=== PATIENT | female | born 1990 | race Caucasian/White ===

== ENCOUNTER 2018-03-25 01:03 | Inpatient (IN) ==
[2018-03-25 01:16] VITALS: BMI 31.9
[2018-03-25 01:36] LABS: AMNISURE ROM TEST THERE IS A RUPTURE (NO RUPTURE)
[2018-03-25 02:00] LABS: BASOPHILS # (AUTO) 0.1 X10^3/uL (0.0-0.1); BASOPHILS % (AUTO) 0.6 % (0.2-1.0); EOSINOPHILS % (AUTO) 0.4 % (0.9-2.9); HEMATOCRIT 35.3 % (36.0-47.0); HEMOGLOBIN 11.7 g/dL (12.0-16.0); LYMPHOCYTES # (AUTO) 1.9 X10^3/uL (1.3-2.9); LYMPHOCYTES % (AUTO) 19.4 % (21.0-51.0); MEAN CORPUSCULAR VOLUME 78.6 fL (80.0-100.0); MEAN PLATELET VOLUME 7.7 fL (7.4-11.0); MONOCYTES # (AUTO) 0.9 x10^3/uL (0.3-0.8); MONOCYTES % (AUTO) 9.6 % (0.0-13.0); NEUTROPHILS # (AUTO) 6.7 x10^3/uL (2.2-4.8); PLATELET COUNT 163 X10^3/uL (150.0-450.0); RED BLOOD COUNT 4.49 X10^6/uL (3.5-5.4); RED CELL DISTRIBUTION WIDTH 14.4 % (11.6-16.5); WHITE BLOOD COUNT 9.5 X10^3/uL (3.6-10.0)
[2018-03-25 02:08] LABS: BILIRUBIN,URINE NEGATIVE (NEGATIVE); BLOOD/HEMOGLOBIN,URINE 2+ (NEGATIVE); GLUCOSE, URINE 1+ (NEGATIVE); KETONES,URINE NEGATIVE (NEGATIVE); LEUKOCYTE ESTERASE ,URINE 3+ (NEGATIVE); NITRITES,URINE NEGATIVE (NEGATIVE); PROTEIN,URINE 2+ (NEGATIVE); UROBILINOGEN,URINE 1+ (NORMAL)
[2018-03-25] MEDS ORDERED: D5LR 1L W PITOCIN 10 UNITS/L 10 UNITS/1,000 ML BAG IV PRN (02:15)
[2018-03-25] MEDS ORDERED: D5 1/2 NS 1000 ML 1,000 ML IV SCH (02:15)
[2018-03-25] MEDS ORDERED: PITOCIN ONE (02:32)
[2018-03-25] MEDS ORDERED: D5LR 1L W PITOCIN 10 UNITS/L 10 UNITS/1,000 ML BAG IV ONE (02:32)
[2018-03-25] MEDS ORDERED: D5 1/2 NS 1000 ML 1,000 ML IV ONE ×2 (02:33→15:00)
[2018-03-25] MEDS ORDERED: D5 1/2 NS 1L W PITOCIN 20 UNITS/L 20 UNITS/1,000 ML BAG IV ONE (02:33)
[2018-03-25 02:45] LABS: APPEARANCE,URINE TURBID (CLEAR); COLOR,URINE YELLOW (YELLOW)
[2018-03-25 02:46] LABS: BACTERIA,URINE TRACE /HPF (NEGATIVE); MUCUS,URINE MODERATE /HPF (NEGATIVE); SQUAMOUS EPITHELIAL CELL,UR MANY /HPF (NEGATIVE)
[2018-03-25] MEDS ORDERED: DILAUDID INJ IVP PRN ×2 (02:55→11:43)
[2018-03-25] MEDS ORDERED: NUBAIN INJ 200 MG VIAL MULTIDOSE IVP PRN (02:55)
[2018-03-25] MEDS ORDERED: REGLAN INJ 10 MG VIAL IVP PRN ×2 (02:55→11:43)
[2018-03-25] MEDS ORDERED: PITOCIN IVP ONE (02:55)
[2018-03-25] MEDS ORDERED: NUBAIN INJ 10 ONE (05:36)
--- NOTE | 2018-03-25 06:40 | DR.OB ---
OB Quick Note - Assessment/Plan Assessment/Plan: L&D 03/25/18 at 6:30am Pitocin=20mu/min. S-No complaint. O-Afebrile,VSS FHJ=937 with good LTV, +accel, no decel. CTX=q 1 1/2 to 2 min., about 45-55mmHg CVX=6cm/75%/-1/VTX A-IUP 38 4/7 weeks in labor with SROM GERD P-Cont. pitocin induction Anticipate F/U labs
[2018-03-25] MEDS ORDERED: PHENERGAN INJ 25 MG IV PRN (07:12)
[2018-03-25] MEDS: D5 1/2 NS 1000 ML 1,000 ML with PITOCIN 20 UNITS IV SCH ×4 (08:22→15:17)
--- NOTE | 2018-03-25 08:56 | DR.OB ---
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 Head delivered over intact perineum. No nuchal cord. Nose and mouth bulb suctioned. Body delivered over intact perineum. Cord clamped x 2 and cut. handed to attendant. Cord sent for gases. Placenta delivered spontaneously / intact / 3 vessel cord. No CVX / vaginal / perineal tears. Viable female infant, VTX/OA, wt=7'10" and 9/9, stable to NBN. Mother stable to RR. GNH=[id number].
[2018-03-25] MEDS ORDERED: FENTANYL INJ 100 mcg ONE (11:04)
[2018-03-25] MEDS ORDERED: ANCEF 1 GRAM IV PREMIX* 1 G/50 ML BAG IV ONE (11:09)
[2018-03-25] MEDS ORDERED: ZOFRAN INJ 4 MG VIAL ONE ×2 (11:24→12:07)
[2018-03-25] MEDS ORDERED: XYLOCAINE 1 % (PLAIN) ONE (11:24)
[2018-03-25] MEDS ORDERED: ROBINUL ONE (11:24)
[2018-03-25] MEDS ORDERED: NORCURON INJ 10 MG VIAL ONE (11:24)
[2018-03-25] MEDS ORDERED: SUPRANE IN ONE (11:24)
[2018-03-25] MEDS ORDERED: NEOSTIGMINE INJ ONE (11:24)
[2018-03-25] MEDS ORDERED: PHENERGAN INJ 25 MG IVP PRN (11:43)
[2018-03-25] MEDS ORDERED: ZOFRAN INJ 4 MG VIAL IVP PRN (11:43)
[2018-03-25] MEDS ORDERED: BENADRYL INJ 50 MG VIAL IVP PRN (11:43)
[2018-03-25] MEDS ORDERED: DILAUDID INJ ONE (12:08)
[2018-03-25] MEDS ORDERED: MYLICON TAB 80 MG CHEW PO PRN (12:22)
[2018-03-25] MEDS ORDERED: DERMOPLAST SPRAY TOP PRN (12:22)
[2018-03-25] MEDS ORDERED: AMBIEN PO PRN ×2 (12:22)
[2018-03-25] MEDS ORDERED: ADACEL or BOOSTRIX TDaP VACCINE IM ONE ×2 (12:22→14:53)
[2018-03-25] MEDS ORDERED: PERCOCET TAB 5/325 MG PO PRN (12:22)
[2018-03-25] MEDS ORDERED: MILK OF MAGNESIA PO PRN ×2 (12:22)
[2018-03-25] MEDS ORDERED: QUELICIN (OR ANECTINE) ONE (15:32)
[2018-03-25] MEDS ORDERED: VERSED ONE (15:32)
[2018-03-25] MEDS: COLACE CAP 100 MG PO SCH (20:25)
[2018-03-25] MEDS: MOTRIN TAB 800 MG PO PRN (20:25)
[2018-03-25] MEDS: ZANTAC PO SCH (20:25)
[2018-03-26] MEDS: D5 1/2 NS 1000 ML 1,000 ML with PITOCIN 20 UNITS IV SCH ×2 (01:03)
[2018-03-26 05:09] LABS: HEMATOCRIT 32.8 % (36.0-47.0); HEMOGLOBIN 10.8 g/dL (12.0-16.0)
[2018-03-26] MEDS: ZANTAC PO SCH ×2 (08:52→20:53)
[2018-03-26] MEDS: PRENATAL PLUS PO SCH (08:52)
[2018-03-26] MEDS: MOTRIN TAB 800 MG PO PRN (14:30)
[2018-03-26] MEDS: BACTROBAN CREAM TOP SCH ×2 (14:49→21:52)
[2018-03-26] MEDS: COLACE CAP 100 MG PO SCH (20:53)
[2018-03-27] MEDS: BACTROBAN CREAM TOP SCH (05:52)
[2018-03-27] MEDS: ZANTAC PO SCH (08:20)
[2018-03-27] MEDS: PRENATAL PLUS PO SCH (08:20)
[2018-03-27 09:02] VITALS: BP 129/78
== END 2018-03-27 11:00 | disposition home or self-care (01) | DRG 798 ==
LOC: ER 01:05 → LD 02:00 → MED/SURG 12:29
PROVIDERS: ADMIT Specialist; ATTEND Specialist
DX: Z30.2 Encounter for sterilization; Z37.0 Single live birth; Z3A.38 38 weeks gestation of pregnancy; O99.613 Diseases of the digestive system complicating pregnancy, third trimester
CPT/HCPCS: 36415; 59409; 80307; 81001; 84112; 85014; 85018; 85025; 86592; 86850; 86900; 86901; 87086; 90715; 96365; 99284; A4216; A4222; S0197; G0434; J0330; J0690; J1170; J2250; J2300; J2405; J2590; J2710; J3010; J3490; S5010

== ENCOUNTER 2020-08-24 02:14 | Inpatient (IN) ==
[2020-08-24 02:24] VITALS: BMI 34.4
[2020-08-24] MEDS ORDERED: NS 1000 ML 1,000 ML IV ONE (04:24)
[2020-08-24] MEDS ORDERED: ZOFRAN INJ 4 MG VIAL IVP ONE (04:24)
[2020-08-24] MEDS ORDERED: MORPHINE SULFATE INJ 2 MG INJ IVP ONE ×2 (04:24→07:45)
--- NOTE | 2020-08-24 04:24 | ED.ABDFE ---
HPI Time Seen Time Seen by Provider: 08/24/20 04:22 PCP Primary Care Physician: MAGDA HPI Comment HPI Comment: Patient presents with worsening abdominal pain despite intervention. Seen in ED earlier tonight with same complaint. Workup revealed elevated liver enzymes. CT abd pel was negative. Recommended to return in AM for US as US was not available at the time. 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 Past Surgical History Comment: TUBALIGATION Family History History of Family Medical Conditions: Yes Family Medical History: Diabetes Mellitus, Cancer, NE and Hypertension Family Medical History Comment: DAD-DM MOM-HTN Social History Does patient currently use any type of tobacco product: No Have you used tobacco products in the last 12 months: No Type of Tobacco Use: None Does any household member use tobacco: No Alcohol Use: None Do you use any recreational Drugs:: No Lives With: Spouse Lives Where: Home Infectious screening In the last 2 months have you had wt loss of >10#?: NO Have you had fever, night sweats or hemotysis?: No Have you traveled outside the country in the last 6 months?: No Isolation: Standard ROS Review of Systems Constitutional: See HPI Gastrointestinal/Abdominal: Abdominal Pain All Other Systems: Reviewed and Negative PE Vital Signs Vitals: Temperature 98.1 F Pulse Rate 88 Respiratory Rate 20 Blood Pressure [Right Arm] 129/78 Blood Pressure [Left Arm] 136/84 Blood Pressure 118/70 O2 Sat by Pulse Oximetry 99 General Limitations: No Limitations General Appearance: Alert and In No Apparent Distress Head Head Exam: Normal Inspection, Atraumatic and Normocephalic Eyes Eye exam: Normal Appearance and EOMI Neck Neck Exam: Normal Inspection and Trachea Midline Chest Chest Inspection: Normal Inspection and Symmetric Chest Wall Rise Respiratory Respiratory Exam: Normal Lung Sounds Bilat Respiratory Exam: Bilateral: Clear to Auscultation Cardiovascular Cardiovascular Exam: Regular Rate, Normal Rhythm and Normal Heart Sounds Abdominal Exam Abdominal Exam: Normal Inspection and Tenderness COURSE Reevaluation 1st: Unchanged Consultation Consultation Comments: Dr. Del Real will see patient in ED. Patient to remain NPO. ROR XRAY X-ray Results: HISTORY Right upper quadrant pain, elevated liver function tests STUDY Gallbladder sonography Technique: Multiple grayscale sonographic images were obtained. COMPARISON None FINDINGS The liver is normal in size and configuration and without cyst, mass, or biliary ductal dilatation. Cholelithiasis is present. There is mild thickening of the gallbladder wall but no evidence for intramural or pericholecystic fluid. Early cholecystitis not excluded. Common duct measured 6.4 mm. Right kidney measured 9.9 cm in length. No solid masses, obstruction, stones, or perinephric fluid collections were identified. The head and distal body of the pancreas appear within normal limits. The tail and proximal body were obscured by overlying bowel gas. IMPRESSION Cholelithiasis with mild gallbladder wall thickening. Early cholecystitis is possible. Clinical correlation should determine the need for further evaluation with nuclear medicine biliary scan Electronically signed by: BLAYNE MAJOR (Aug 24, 2020 07:40:54) Opioid Opioid Risk Tool Age (Chau box if 16-45): Yes History of Preadolescent Sexual Abuse: No Total: 1 Total Score Risk Category: Low Risk Copyright: Moses AMOS predicting aberrant behaviors Diagnosis Discharge Problem: Cholecystitis Cholelithiasis Qualifiers: Cholelithiasis location: gallbladder Cholecystitis presence: with cholecystitis Cholecystitis acuity: acute Biliary obstruction: without biliary obstruction Qualified Code(s): K80.00 - Calculus of gallbladder with acute cholecystitis without obstruction
[2020-08-24] MEDS ORDERED: NS 1000 ML 1,000 ML ONE ×2 (04:31→10:31)
[2020-08-24] MEDS ORDERED: MORPHINE SULFATE INJ 2 MG INJ ONE ×2 (04:32→07:50)
[2020-08-24] MEDS ORDERED: ZOFRAN INJ 4 MG VIAL ONE (04:32)
--- NOTE | 2020-08-24 07:42 | US ---
HISTORYRight upper quadrant pain, elevated liver function testsSTUDYGallbladder sonographyTechnique: Multiple grayscale sonographic images were obtained.COMPARISONNoneFINDINGSThe liver is normal in size and configuration and without cyst, mass, or biliary ductal dilatation. Cholelithiasis is present. There is mild thickening of the gallbladder wall but no evidence for intramural or pericholecystic fluid. Early cholecystitis not excluded. Common duct measured 6.4 mm. Right kidney measured 9.9 cm in length. No solid masses, obstruction, stones, or perinephric fluid collections were identified. The head and distal body of the pancreas appear within normal limits. The tail and proximal body were obscured by overlying bowel gas.IMPRESSIONCholelithiasis with mild gallbladder wall thickening. Early cholecystitis is possible. Clinical correlation should determine the need for further evaluation with nuclear medicine biliary scanElectronically signed by: BLAYNE MAJOR (Aug 24, 2020 07:40:54)
[2020-08-24] MEDS ORDERED: DILAUDID INJ IVP ONE (09:34)
[2020-08-24] MEDS ORDERED: DILAUDID INJ ONE ×2 (09:34→15:22)
[2020-08-24 09:44] LABS: BASOPHILS % (AUTO) 0.3 % (0.2-1.0); EOSINOPHILS # (AUTO) 0.1 x10^3/uL (0.0-0.2); EOSINOPHILS % (AUTO) 1.7 % (0.9-2.9); HEMATOCRIT 41.1 % (36.0-47.0); HEMOGLOBIN 13.8 g/dL (12.0-16.0); LYMPHOCYTES # (AUTO) 0.9 X10^3/uL (1.3-2.9); LYMPHOCYTES % (AUTO) 13.5 % (21.0-51.0); MEAN CORPUSCULAR HEMOGLOBIN 27.3 pg (27.0-34.0); MEAN CORPUSCULAR HGB CONC 33.6 g/dL (33.0-35.0); MEAN CORPUSCULAR VOLUME 81.2 fL (80.0-100.0); MEAN PLATELET VOLUME 6.8 fL (7.4-11.0); MONOCYTES # (AUTO) 0.7 x10^3/uL (0.3-0.8); MONOCYTES % (AUTO) 10.5 % (0.0-13.0); NEUTROPHILS # (AUTO) 5.2 x10^3/uL (2.2-4.8); PLATELET COUNT 258 X10^3/uL (150.0-450.0); RED BLOOD COUNT 5.07 X10^6/uL (3.5-5.4); RED CELL DISTRIBUTION WIDTH 13.7 % (11.6-16.5)
[2020-08-24 09:52] LABS: ALANINE AMINOTRANSFERASE 941 Units/L (12-78); ALBUMIN 3.3 g/dL (3.4-5.0); ALKALINE PHOSPHATASE 203 Units/L (46-116); ASPARTATE AMINO TRANSFERASE 441 Units/L (15-37); BLOOD UREA NITROGEN 7 mg/dL (7-18); CALCIUM 8.3 mg/dL (8.5-10.1); CARBON DIOXIDE 27.5 mmol/L (21-32); CHLORIDE 105 mmol/L (98-107); COR CA(FOR HYPOALB) 8.9 mg/dL (8.5-10.1); CREATININE 0.78 mg/dL (0.55-1.02); SODIUM 141 mmol/L (136-145); TOTAL PROTEIN 6.7 g/dL (6.4-8.2); eGFR NON BLACK RACES > 60 (>60)
[2020-08-24] MEDS ORDERED: MORPHINE SULFATE INJ 2 MG INJ IVP PRN (10:11)
[2020-08-24] MEDS ORDERED: NS 1000 ML 1,000 ML IV SCH (11:00)
--- NOTE | 2020-08-24 13:35 | MRI ---
HISTORYELEVATED LIVER ENZYMESSTUDYMRCPCOMPARISONCT abdomen and pelvis dated 08/23/2020 and ultrasound dated 08/24/2020.TECHNIQUEMultiplanar multi sequences images through the abdomen were performed without contrast 3D MIPS images for MRCP were also performed.FINDINGSThere is no evidence of pleural effusions. The liver measures in length 17 centimeters and the spleen 10.8 centimeters. No significant fatty liverThere is no drop of signal in out of phase. The spleen is no enlarged. There is no adrenal masses. The gallbladder is no significant distended with multiple gallstones and minimal surrounding fluid; however the wall is no significant thickened by MRI criteria. There is no significant intrahepatic biliary dilatation. The common bile duct measuring in the mid aspect approximately 5 millimetersIn the superior aspect of the common bile duct there is a focal defect that corresponding with 2 adjacent gallstones, these area is projecting approximately 2.7 centimeters from the ampullary region and measures 0.7 centimeters in craniocaudal dimension by 0.5 centimeters in transverse dimension. The pancreatic duct is no significant dilated. The distal aspect of the common bile duct is unremarkable. The visualized pancreas demonstrate no focal high-signal on T2 lesions. There is no abnormal signal in the portal vein.IMPRESSIONCholedocholithiasis with 2 adjacent stones projecting in the superior aspect of the common bile duct approximately 2.7 centimeters from the ampulla region measuring 0.7 x 0.5 centimeters, craniocaudal by transverse dimension.Multiple gallstones in the gallbladder fundus with trace amount of fluid at the gallbladder fossa and without significant wall thickening by MRI criteria. No high-signal on T2 liver lesions.Electronically signed by: Caroline Finch (Aug 24, 2020 13:33:00)
[2020-08-24] MEDS ORDERED: DILAUDID PO PRN (14:52)
[2020-08-24] MEDS ORDERED: LEVAQUIN PREMIX IV 500 MG 500 MG/100 ML BAG IV ONE (15:22)
[2020-08-24] MEDS ORDERED: PROTONIX INJ 40 MG VIAL ONE (15:22)
[2020-08-24] MEDS ORDERED: D5 1/2 NS 1000 ML 1,000 ML IV ONE (15:22)
[2020-08-24] MEDS: DILAUDID INJ IVP PRN ×3 (15:28→23:49)
[2020-08-24] MEDS: D5 1/2 NS 1000 ML 1,000 ML IV SCH ×2 (15:29→23:45)
[2020-08-24] MEDS: PROTONIX INJ 40 MG VIAL IVP SCH (15:30)
[2020-08-24] MEDS: LEVAQUIN PREMIX IV 500 MG 500 MG/100 ML BAG IV SCH (15:30)
[2020-08-24] MEDS: ZOFRAN INJ 4 MG VIAL IVP PRN ×2 (18:41→23:46)
[2020-08-24] MEDS: PEPCID TAB 20 MG PO SCH (20:07)
[2020-08-24 23:41] LABS: BILIRUBIN,URINE 1+ (NEGATIVE); BLOOD/HEMOGLOBIN,URINE NEGATIVE (NEGATIVE); GLUCOSE, URINE NEGATIVE (NEGATIVE); KETONES,URINE 4+ (NEGATIVE); LEUKOCYTE ESTERASE ,URINE 2+ (NEGATIVE); NITRITES,URINE NEGATIVE (NEGATIVE); PROTEIN,URINE NEGATIVE (NEGATIVE); UROBILINOGEN,URINE 1+ (NORMAL)
[2020-08-24 23:49] LABS: APPEARANCE,URINE CLEAR (CLEAR); BACTERIA,URINE TRACE /HPF (NEGATIVE); COLOR,URINE AMBER (YELLOW); RBC,URINE NONE SEEN /HPF (0-3); SQUAMOUS EPITHELIAL CELL,UR NUMEROUS /HPF (NEGATIVE)
[2020-08-25] MEDS: D5 1/2 NS 1000 ML 1,000 ML IV SCH ×3 (04:13→12:37)
[2020-08-25 04:42] LABS: BASOPHILS % (AUTO) 0.3 % (0.2-1.0); EOSINOPHILS % (AUTO) 0.2 % (0.9-2.9); HEMATOCRIT 41.9 % (36.0-47.0); HEMOGLOBIN 14.1 g/dL (12.0-16.0); LYMPHOCYTES # (AUTO) 1.2 X10^3/uL (1.3-2.9); LYMPHOCYTES % (AUTO) 13.4 % (21.0-51.0); MEAN CORPUSCULAR HEMOGLOBIN 27.5 pg (27.0-34.0); MEAN CORPUSCULAR HGB CONC 33.6 g/dL (33.0-35.0); MEAN CORPUSCULAR VOLUME 81.9 fL (80.0-100.0); MEAN PLATELET VOLUME 6.8 fL (7.4-11.0); MONOCYTES % (AUTO) 11.4 % (0.0-13.0); NEUTROPHILS # (AUTO) 6.7 x10^3/uL (2.2-4.8); NEUTROPHILS % (AUTO) 74.7 % (42.0-75.0); PLATELET COUNT 251 X10^3/uL (150.0-450.0); RED BLOOD COUNT 5.12 X10^6/uL (3.5-5.4); RED CELL DISTRIBUTION WIDTH 13.4 % (11.6-16.5)
[2020-08-25 04:56] LABS: ALANINE AMINOTRANSFERASE 736 Units/L (12-78); ALKALINE PHOSPHATASE 239 Units/L (46-116); ASPARTATE AMINO TRANSFERASE 196 Units/L (15-37); BLOOD UREA NITROGEN 3 mg/dL (7-18); CALCIUM 8.4 mg/dL (8.5-10.1); CARBON DIOXIDE 28.3 mmol/L (21-32); CHLORIDE 101 mmol/L (98-107); COR CA(FOR HYPOALB) 9.2 mg/dL (8.5-10.1); COR NA(FOR HYPERGLY) 137 mmol/L (136-145); CREATININE 0.66 mg/dL (0.55-1.02); SODIUM 136 mmol/L (136-145); TOTAL PROTEIN 6.7 g/dL (6.4-8.2); eGFR NON BLACK RACES > 60 (>60)
[2020-08-25] MEDS: ZOFRAN INJ 4 MG VIAL IVP PRN (08:02)
[2020-08-25] MEDS ORDERED: MILK OF MAGNESIA PO SCH (09:00)
[2020-08-25] MEDS ORDERED: ZOFRAN INJ 4 MG VIAL IVP STA (09:31)
[2020-08-25] MEDS ORDERED: DILAUDID INJ IVP STA (09:31)
[2020-08-25] MEDS: DILAUDID INJ IVP PRN ×2 (09:57→13:07)
[2020-08-25] MEDS: PEPCID TAB 20 MG PO SCH (09:58)
[2020-08-25] MEDS: LEVAQUIN PREMIX IV 500 MG 500 MG/100 ML BAG IV SCH (10:02)
[2020-08-25] MEDS: PROTONIX INJ 40 MG VIAL IVP SCH (10:03)
[2020-08-25 12:27] VITALS: BP 104/52
[2020-08-25] MEDS ORDERED: COLACE CAP 100 MG PO SCH (21:00)
== END 2020-08-25 13:50 | disposition short-term general hospital (02) | DRG 446 ==
LOC: ER 02:16 → MED/SURG 02:16 → INTOOBSV 10:11 → OBSVTOIN 10:11 → MED/SURG 10:40
PROVIDERS: ADMIT Obstetrics & Gynecology Obstetrics; ATTEND Obstetrics & Gynecology Obstetrics
DX: R10.11 Right upper quadrant pain; E80.6 Other disorders of bilirubin metabolism; R94.5 Abnormal results of liver function studies; K80.01 Calculus of gallbladder with acute cholecystitis with obstruction